=== PATIENT | female | born 1950 | race Caucasian/White ===

== ENCOUNTER → 2016-12-06 | Outpatient (CLI) | payer OTHER | LOC: FIMAGING 11:48 | PROVIDERS: ATTEND General Practice | DX: M26.69 Other specified disorders of temporomandibular joint (principal) ==

== ENCOUNTER → 2018-03-08 | Outpatient (CLI) | payer OTHER, MEDICARE | LOC: BHFA 14:30 | PROVIDERS: ATTEND Internal Medicine Interventional Cardiology | DX: I48.91 Unspecified atrial fibrillation (principal); I27.20 Pulmonary hypertension, unspecified; I07.1 Rheumatic tricuspid insufficiency ==

== ENCOUNTER → 2018-03-29 | Outpatient (CLI) | payer OTHER, MEDICARE | LOC: BHFA 15:30 | PROVIDERS: ATTEND Internal Medicine Cardiovascular Disease | DX: I27.20 Pulmonary hypertension, unspecified (principal) ==

== ENCOUNTER 2018-08-10 09:38 | Observation (INO) | payer OTHER, MEDICARE ==
--- NOTE | 2018-08-10 09:47 | EDPHY ---
H & P Stated Complaint: odd feeling in heart since yesterday--"wormy feeling" Time Seen by Provider: 08/10/18 09:46 - Personal History Tetanus Vaccine Date: within the last 10 yrs - Medical/Surgical History Hx Asthma: No Hx Chronic Respiratory Disease: No Hx Diabetes: No Hx Cardiac Disease: No Hx Renal Disease: No Hx Cirrhosis: No Hx Alcoholism: No Hx HIV/AIDS: No Hx Splenectomy or Spleen Trauma: No Other PMH: scloliosis,depressive disorder, goitre, TMJ/chronic pain, fatigue, leaku heart valve and cardiomyopathy - Social History Smoking Status: Former smoker Constitutional: Initial Vital Signs Temperature (C) 36.7 C 08/10/18 09:42 Heart Rate 141 H 08/10/18 09:42 Respiratory Rate 18 08/10/18 09:42 Blood Pressure 121/86 H 08/10/18 09:42 O2 Sat (%) 95 08/10/18 09:42 O2 Delivery Mode Room Air Allergies/Adverse Reactions: No Known Allergies Allergy (Verified 09/03/12 18:24) Home Medications: Medication Instructions Recorded ARIPiprazole [Abilify 10 mg (*)] 15 mg PO DAILY 12/29/14 FLUoxetine [Prozac 20 MG (*)] 20 mg PO DAILY 12/29/14 buPROPion SR [Wellbutrin 150mg SR 150 mg PO 1200 12/29/14 (*)] buPROPion SR [Wellbutrin 150mg SR 300 mg PO DAILY 12/29/14 (*)] Acetaminophen [Tylenol 325mg (*)] 325 - 650 mg PO Q6 PRN #60 tab 01/21/15 Aspirin EC [Aspirin EC 325 mg (*)] 325 mg PO DAILY #20 tab 01/21/15 Docusate Sodium [Colace 100 MG (*)] 100 mg PO BID #60 cap 01/21/15 celeCOXIB [Celebrex (*)] 200 mg PO DAILY #20 cap 01/21/15 oxyCODONE CR [Oxycontin] 15 mg PO BID #30 tab 01/21/15 oxyCODONE IR [Oxycodone Ir (*)] 5 mg PO Q4 PRN #60 tab 01/21/15 Medical Decision Making ED Course/Re-evaluation: CHIEF COMPLAINT: "Funny feeling in heart" HISTORY OF PRESENT ILLNESS: The patient is a 68 y/o female with a history of cardiomyopathy, leaky tricuspid valve, and chronic fatigue complaining of a "funny feeling in her heart" onset several days ago. On Sunday, 2 days ago, she had a dental procedure and was under propofol sedation for 10 hours with local anesthetization at the site of the procedure. She had an odd feeling in her heart prior to the procedure. Yesterday she had some palpitations. However, today she now has a "wormy" sensation in her heart. Since the surgery she has taken Doxycycline, 20mg Oxycodone Q4H, and 2mg Ativan (last night). She is followed by Dr. Chou, personal insurance advisor, and her most recent was in March 2018, 5 months ago. No headache, shortness of breath, abdominal pain, urinary or bowel complaints, numbness, paresthesias, fevers. REVIEW OF SYSTEMS: A comprehensive 10 system review of systems is otherwise negative aside from elements mentioned in the history of present illness and medical decision making. PHYSICAL EXAM: HR, BP, O2 Sat, RR. Temp noted General Appearance: Alert, well hydrated, appropriate, and non-toxic appearing. Head: Atraumatic without scalp tenderness or obvious injury Eyes: Pupils equal, round, reactive to light and accommodation, EOMI, no trauma , no injection. Ears: Clear bilaterally, no perforation, normal landmarks Nose: Atraumatic, no rhinorrhea, clear. Throat: There is no erythema or exudates, no lesions, normal tonsils, mucus membranes moist. Neck: Supple, 2+ carotid upstroke, nontender, no lymphadenopathy. Respiratory: No retractions, no distress, no wheezes, and no accessory muscle use. Lungs are clear to auscultation bilaterally. Cardiovascular: Tachycardia, no murmurs, rubs, or gallops. Bilateral carotid, radial, dorsalis pedis, and posterior tibial pulses intact. Good capillary refill all extremities. Gastrointestinal: Abdomen is soft, nontender, non-distended, no masses, no rebound, no guarding, no peritoneal signs. Musculoskeletal: Normal active ROM of all extremities, atraumatic. Neurological: Alert, appropriate, and interactive. The patient has normal DTRs and non-focal cranial nerves, motor, sensory, and cerebellar exam. Skin: No rashes, good turgor, no nodules on palpation. Past medical history: Scoliosis, depressive disorder, TMJ/chronic pain, fatigue , leaky tricuspid valve and cardiomyopathy Past surgical history: Denies Family history: Denies Social history: Friend at bedside, lives in [place], retired DIAGNOSTICS/PROCEDURES/CRITICAL CARE TIME: EKG: The 12 lead EKG was interpreted by myself as sinus tachycardia with a rate of 140. See hard copy and/or "tracemaster" electronic copy for interpretation. DIFFERENTIAL DIAGNOSIS: The differential diagnosis for the patient's narrow complex tachycardia included but was not limited to various causes of sinus tachycardia such as dehydration and medicines, SVT, atrial flutter, atrial fibrillation, pulmonary causes. MEDICAL DECISION MAKING: The patient is a 68 y/o female with a history of cardiomyopathy, leaky tricuspid valve, and chronic fatigue presenting with a "funny feeling in her heart" including a racing heart with palpitations, onset last night. On exam she has tachycardia of 141bpm. EKG and labs ordered. 0950: I interpreted patient's EKG as sinus tachycardia with a rate of 140. I discussed the risks and benefits of Adenosine; she is comfortable with having this medication. 0959: Reassessed patient; she is hemodynamically stable. 1003: 12mg IV Adenosine administered, she did not cardiovert but it did effect the rhythm. Her heart rate remains 138. She is most likely in atrial flutter based on the rate and EKG. I will consult with her personal insurance advisor. I have also discussed the probable admission and SIENA procedure; which she is comfortable with. Diltazem drip administered. 1013: I consulted with Dr. Rodrigues, personal insurance advisor, regarding this patient. He agrees with plan for admission and will follow this patient during her admission. 60mg SC Lovenox administered. 1018: I consulted with the hospitalist service, Dr. Esquivel agrees to admit this patient. 1025: Patient's rate has dropped down to the 110's; 10mg IV Diltiazem bolus administered instead of drip. 1040: Patient is safe to be transferred to the floor. - Data Points Laboratory Results: Laboratory Results 08/10/18 10:05 08/10/18 08/10/18 08/10/18 10:05 10:05 10:05 WBC 11.37 10^3/uL H 10^3/uL (3.80-9.50) RBC 4.43 10^6/uL 10^6/uL (4.18-5.33) Hgb 15.2 g/dL g/dL (12.6-16.3) Hct 45.6 % % (38.0-47.0) MCV 102.9 fL H fL (81.5-99.8) MCH 34.3 pg H pg (27.9-34.1) MCHC 33.3 g/dL g/dL (32.4-36.7) RDW 12.6 % % (11.5-15.2) Plt Count 285 10^3/uL 10^3/uL (150-400) MPV 10.6 fL fL (8.7-11.7) Neut % (Auto) 79.9 % H % (39.3-74.2) Lymph % (Auto) 13.2 % L % (15.0-45.0) [place] % (Auto) 6.0 % % (4.5-13.0) Eos % (Auto) 0.1 % L % (0.6-7.6) Baso % (Auto) 0.4 % % (0.3-1.7) Nucleat RBC Rel Count 0.0 % % (0.0-0.2) Absolute Neuts (auto) 9.10 10^3/uL H 10^3/uL (1.70-6.50) Absolute Lymphs (auto) 1.50 10^3/uL 10^3/uL (1.00-3.00) Absolute Monos (auto) 0.68 10^3/uL 10^3/uL (0.30-0.80) Absolute Eos (auto) 0.01 10^3/uL L 10^3/uL (0.03-0.40) Absolute Basos (auto) 0.04 10^3/uL 10^3/uL (0.02-0.10) Absolute Nucleated RBC 0.00 10^3/uL 10^3/uL (0-0.01) Immature Gran % 0.4 % % (0.0-1.1) Immature Gran # 0.04 10^3/uL 10^3/uL (0.00-0.10) PT 13.2 SEC SEC (12.0-15.0) INR 0.98 (0.83-1.16) APTT 25.2 SEC SEC (23.0-38.0) D-Dimer 1.12 ug/mLFEU H ug/mLFEU (0.00-0.50) Sodium Pending Potassium Pending Chloride Pending Carbon Dioxide Pending Anion Gap Pending BUN Pending Creatinine Pending Estimated GFR Pending Glucose Pending Calcium Pending Magnesium Pending POC Troponin I NT-Pro-B Natriuret Pep Pending 08/10/18 10:01 WBC RBC Hgb Hct MCV MCH MCHC RDW Plt Count MPV Neut % (Auto) Lymph % (Auto) [place] % (Auto) Eos % (Auto) Baso % (Auto) Nucleat RBC Rel Count Absolute Neuts (auto) Absolute Lymphs (auto) Absolute Monos (auto) Absolute Eos (auto) Absolute Basos (auto) Absolute Nucleated RBC Immature Gran % Immature Gran # PT INR APTT D-Dimer Sodium Potassium Chloride Carbon Dioxide Anion Gap BUN Creatinine Estimated GFR Glucose Calcium Magnesium POC Troponin I 0.03 ng/mL ng/mL (0.00-0.08) NT-Pro-B Natriuret Pep Medications Given: Discontinued Medications Adenosine (Adenosine) 12 mg IVP EDNOW ONE Stop: 08/10/18 09:57 Last Admin: 08/10/18 10:06 Dose: 12 mg Diltiazem HCl (Cardizem 25 Mg/5 Ml Vial) 20 mg IVP EDNOW ONE Stop: 08/10/18 10:10 Last Admin: 08/10/18 10:30 Dose: Not Given Point of Care Test Results: Chemistry 08/10/18 10:01 POC Troponin I 0.03 ng/mL ng/mL (0.00-0.08) Departure - Departure Disposition: [facility] Inpatient Acute Clinical Impression: Atrial flutter Qualifiers: Atrial flutter type: unspecified Qualified Code(s): I48.92 - Unspecified atrial flutter Condition: Fair Referrals: Chio Epps MD [Primary Care Provider] - As per Instructions Report Scribed for: Troy Brandon Report Scribed by: Crista Valverde Date of Report: 08/10/18 Time of Report: 09:47
[2018-08-10] MEDS ORDERED: ADENOSINE 6 MG/2 ML VIAL ONE (09:55)
[2018-08-10] MEDS ORDERED: ADENOSINE 6 MG/2 ML VIAL IVP ONE (09:56)
[2018-08-10] MEDS ORDERED: DILTIAZEM 125 MG in D5W 125 ML IV ONE (10:09)
[2018-08-10] MEDS ORDERED: DILTIAZEM 25 MG/5 ML VIAL IVP ONE (10:09)
[2018-08-10] MEDS ORDERED: ENOXAPARIN 60 MG/0.6 ML SYR SC ONE (10:17)
[2018-08-10 10:21] LABS: PLATELET COUNT 285 10^3/uL (150-400)
[2018-08-10] MEDS ORDERED: DILTIAZEM 25 MG/5 ML VIAL IVP SCH (10:30)
[2018-08-10 10:32] LABS: INR 0.98 (0.83-1.16); PROTIME(PATIENT) 13.2 SEC (12.0-15.0)
--- NOTE | 2018-08-10 13:59 | CPEKG ---
Test Reason : OPEN Blood Pressure : / mmHG Vent. Rate : 140 BPM Atrial Rate : 140 BPM P-R Int : 112 ms QRS Dur : 126 ms QT Int : 363 ms P-R-T Axes : 082 082 -67 degrees QTc Int : 554 ms Sinus tachycardia Right bundle branch block Nonspecific T abnormalities, lateral leads Confirmed by Troy Brandon ([id number]) on 08/10/2018 1:59:04 PM Referred By: Confirmed By:Troy Brandon
[2018-08-10] MEDS: ACETAMINOPHEN 325 MG TAB PO PRN ×2 (14:11→23:00)
[2018-08-10] MEDS ORDERED: oxyCODONE IR 5 MG TAB PO PRN (14:52)
[2018-08-10] MEDS ORDERED: LORazepam 1 MG TAB PO PRN (14:52)
[2018-08-10] MEDS ORDERED: methylPREDNISolone 4 MG TAB PO SCH (15:00)
[2018-08-10] MEDS: PILOCARPINE HCL 5 MG TAB PO SCH ×2 (15:55→22:57)
[2018-08-10] MEDS: AMOX/CLAVULANATE 500/125 MG TAB PO SCH (16:00)
--- NOTE | 2018-08-10 16:03 | PDGENHP ---
History and Physical - Chief Complaint palpitations - History of Present Illness The patient is a 68 y/o female with a history of cardiomyopathy, leaky tricuspid valve, and chronic fatigue complaining of a "funny feeling in her heart" onset several days ago. On Sunday, 2 days ago, she had a dental procedure and was under propofol sedation for 10 hours with local anesthetization at the site of the procedure. She had an odd feeling in her heart prior to the procedure. Yesterday she had some palpitations. However, today she now has a "wormy" sensation in her heart. Since the surgery she has taken Doxycycline, 20mg Oxycodone Q4H, and 2mg Ativan (last night). She is followed by Dr. Chou, pattern stamper Denies headache, shortness of breath, abdominal pain, urinary or bowel complaints, numbness, paresthesias, fevers. IN the ER she is noted to be in aflutter and was started on Lovenox. Initially she was supposed to have started a Diltiazem drip but this was changed to a bolus Past medical history: Scoliosis, depressive disorder, TMJ/chronic pain, fatigue , leaky tricuspid valve and cardiomyopathy Past surgical history: Denies Family history: Denies Social history: Friend at bedside, lives in [place], retired History Information - Allergies/Home Medication List Allergies/Adverse Reactions: No Known Allergies Allergy (Verified 09/03/12 18:24) Home Medications: ARIPiprazole [Abilify 5 mg (*)] 5 mg PO DAILY 08/10/18 [Last Taken 08/09/18] Amox Tr/K Clav (Augmentin) [Augmentin 500/125 MG TAB (*)] 500 mg PO Q8 08/10/18 [Last Taken 08/10/18 08:00] Bupropion HCl [Wellbutrin Xl] 300 mg PO DAILY 08/10/18 [Last Taken 08/09/18] Estradiol/Norethindrone Acet [Activella 0.5-0.1 mg Tablet] 1 each PO DAILY 08/10 [Last Taken 08/09/18] Herbals/Supplements -Info Only 1 ea PO DAILY 08/10/18 [Last Taken Unknown] LORazepam [Ativan 2 mg tab] 2 mg PO BID PRN 08/10/18 [Last Taken Unknown] Methylphenidate HCl [Ritalin 20mg (*)] 20 mg PO DAILY PRN 08/10/18 [Last Taken Unknown] Ondansetron [Zofran Odt] 8 mg PO Q2D 08/10/18 [Last Taken 08/09/18] Oxycodone Ir 10mg Tablet 10 mg PO BID PRN 08/10/18 [Last Taken Unknown] Oxycodone Ir 20mg Tablet 20 mg PO Q4HRS PRN 08/10/18 [Last Taken Unknown] Pilocarpine HCl [Salagen 5mg (*)] 5 mg PO TID 08/10/18 [Last Taken 08/09/18] Sildenafil Citrate [Revatio 20 MG (*)] 20 mg PO DAILY PRN 08/10/18 [Last Taken Unknown] Testosterone 2.5mg Cmpd Tab 2.5 mg PO DAILY 08/10/18 [Last Taken Unknown] Vortioxetine Hydrobromide [Brintellix] 20 mg PO Q2D 08/10/18 [Last Taken ] buPROPion XL [Wellbutrin Xl] 150 mg PO DAILY 08/10/18 [Last Taken 08/09/18] methylPREDNISolone [Medrol 4mg (*)] 4 mg PO AD 08/10/18 [Last Taken 08/10/18 16mg] I have personally reviewed and updated: medical history, social history - Social History Smoking Status: Former smoker Review of Systems Review of Systems: ROS: 10pt was reviewed & negative except for what was stated in HPI & below Physical Exam Physical Exam: Temp Pulse Resp BP Pulse Ox 37.1 C 78 20 92/50 L 92 08/10/18 15:23 08/10/18 15:23 08/10/18 15:23 08/10/18 15:23 08/10/18 15:23 Constitutional: no apparent distress Eyes: PERRL, EOMI Ears, Nose, Mouth, Throat: moist mucous membranes, No poor dentition Cardiovascular: No JVD, No edema Respiratory: no respiratory distress Gastrointestinal: No guarding, No distension Skin: warm, other (bruising around mouth) Musculoskeletal: full muscle strength Neurologic: AAOx3 Psychiatric: interacting appropriately, not anxious, not encephalopathic Lymph, Heme, Immunologic: No petechiae Lab Data & Imaging Review 08/10/18 10:05 08/10/18 10:05 WBC 11.37 10^3/uL (3.80-9.50) H 08/10/18 10:05 RBC 4.43 10^6/uL (4.18-5.33) 08/10/18 10:05 Hgb 15.2 g/dL (12.6-16.3) 08/10/18 10:05 Hct 45.6 % (38.0-47.0) 08/10/18 10:05 MCV 102.9 fL (81.5-99.8) H 08/10/18 10:05 MCH 34.3 pg (27.9-34.1) H 08/10/18 10:05 MCHC 33.3 g/dL (32.4-36.7) 08/10/18 10:05 RDW 12.6 % (11.5-15.2) 08/10/18 10:05 Plt Count 285 10^3/uL (150-400) 08/10/18 10:05 MPV 10.6 fL (8.7-11.7) 08/10/18 10:05 Neut % (Auto) 79.9 % (39.3-74.2) H 08/10/18 10:05 Lymph % (Auto) 13.2 % (15.0-45.0) L 08/10/18 10:05 [place] % (Auto) 6.0 % (4.5-13.0) 08/10/18 10:05 Eos % (Auto) 0.1 % (0.6-7.6) L 08/10/18 10:05 Baso % (Auto) 0.4 % (0.3-1.7) 08/10/18 10:05 Nucleat RBC Rel Count 0.0 % (0.0-0.2) 08/10/18 10:05 Absolute Neuts (auto) 9.10 10^3/uL (1.70-6.50) H 08/10/18 10:05 Absolute Lymphs (auto) 1.50 10^3/uL (1.00-3.00) 08/10/18 10:05 Absolute Monos (auto) 0.68 10^3/uL (0.30-0.80) 08/10/18 10:05 Absolute Eos (auto) 0.01 10^3/uL (0.03-0.40) L 08/10/18 10:05 Absolute Basos (auto) 0.04 10^3/uL (0.02-0.10) 08/10/18 10:05 Absolute Nucleated RBC 0.00 10^3/uL (0-0.01) 08/10/18 10:05 Immature Gran % 0.4 % (0.0-1.1) 08/10/18 10:05 Immature Gran # 0.04 10^3/uL (0.00-0.10) 08/10/18 10:05 PT 13.2 SEC (12.0-15.0) 08/10/18 10:05 INR 0.98 (0.83-1.16) 08/10/18 10:05 APTT 25.2 SEC (23.0-38.0) 08/10/18 10:05 D-Dimer 1.12 ug/mLFEU (0.00-0.50) H 08/10/18 10:05 Sodium 138 mEq/L (135-145) 08/10/18 10:05 Potassium 4.2 mEq/L (3.3-5.0) 08/10/18 10:05 Chloride 101 mEq/L (97-110) 08/10/18 10:05 Carbon Dioxide 25 mEq/l (22-31) 08/10/18 10:05 Anion Gap 12 mEq/L (6-14) 08/10/18 10:05 BUN 18 mg/dL (7-23) 08/10/18 10:05 Creatinine 1.1 mg/dL (0.6-1.0) H 08/10/18 10:05 Estimated GFR 50 08/10/18 10:05 Glucose 105 mg/dL (70-100) H 08/10/18 10:05 Calcium 9.8 mg/dL (8.5-10.4) 08/10/18 10:05 Magnesium 2.1 mg/dL (1.6-2.3) 08/10/18 10:05 POC Troponin I 0.03 ng/mL (0.00-0.08) 08/10/18 10:01 NT-Pro-B Natriuret Pep 5440 pg/mL (0-125) H 08/10/18 10:05 TSH 3.310 uIU/mL (0.465-4.680) 08/10/18 10:05 Free T4 1.63 ng/dL (0.59-2.19) 08/10/18 10:05 Assessment & Plan Assessment: #Atrial flutter -EKG c/w 2:1 block -did not start a Diltiazem drip. Instead was given Diltiazem 10mg IV x 1. BP has now dropped and HR is controlled. As she did not tolerate the CCB, will start Metoprolol BID -NPO in case cardioversion is needed in the a.m. -[facility] for clot prevention -Telemetry #S/p Dental Procedures: will provide pain control. #Acute pain: pain meds per above D/W Dr. Rodrigues
[2018-08-10] MEDS ORDERED: AMOX/CLAVULANATE 500/125 MG TAB PO SCH (22:00)
[2018-08-10] MEDS: METOPROLOL TARTRATE 25 MG TAB PO SCH (22:11)
[2018-08-10] MEDS: ENOXAPARIN 80 MG/0.8 ML SYR SC SCH (22:11)
[2018-08-10] MEDS: oxyCODONE IR 5 MG TAB PO PRN (22:57)
--- NOTE | 2018-08-11 00:32 | GCON ---
CARDIOLOGY CONSULTATION. DATE OF CONSULTATION: 08/10/2018 INDICATION FOR CONSULTATION: New onset of atrial flutter. HISTORY OF PRESENT ILLNESS: The patient is a pleasant 68-year-old female with a known history of iso lated episode of paroxysmal atrial fibrillation in the setting of supplemental T4, severe tricuspid r egurgitation with pulmonary pressure of 48 mmHg on echocardiogram from March 2018, depression who over the course of this week has undergone significant oral surgery with removal of all of her teeth seco ndary to deterioration of her teeth from grinding. She states she underwent a prolonged 2 day oral s urgery with removal of all of her teeth requiring approximately 10 hours of general anesthesia with p ropofol. Yesterday, she returned to the dentist for temporary implant of her teeth. She states that this was a very prolonged and stressful procedure. She states that on her way home from the dentist 's office that she began to notice a fluttering in her chest which she described as like "having worm s in my heart." She denied any associated dizziness, lightheadedness, near syncope, or syncope. These symptoms of irregular heartbeat persisted. She contacted the on-call shoe shiner last evening . She spoke with CHARITO Toussaint, who recommended that she present to [facility] for further evaluation. Upon arrival in the emergency department, she was found to be in atrial flutter with 2:1 block at 140 beats per minute. She was given adenosine by Dr. Brandon, which did not resolve the rhythm, but briseida ar flutter waves were noted. She was started on diltiazem drip. She is currently on 10 mg/hour with a marked improvement now with flutter with variable block with rates primarily in the 80s. Currently, at the time of my exam, she is resting comfortably. She continues to have a sensation of irregular heartbeat. She denies any complaints of chest pain, chest pressure, shortness of breath, o r dyspnea. No complaints of PND, orthopnea, or lower extremity edema. No complaints of fevers, chil ls, sweats, nausea, vomiting, or diaphoresis. No complaints of abdominal pain or flank pain. PAST MEDICAL HISTORY: As outlined above. PAST SURGICAL HISTORY: Hip replacement surgery and recent complete dental extraction. ALLERGIES: To medications, none. MEDICATIONS: On admission, oxycodone IR 20 mg Q.4 hours p.r.n. pain, methylprednisone 4 mg once brent y, Augmentin 500 mg p.o. q.8 hours, sildenafil 20 mg daily p.r.n., oxycodone IR 10 mg p.o. b.i.d. p.r .n., Ativan 2 mg p.o. b.i.d. p.r.n., Pilocarpine 5 mg p.o. t.i.d., estradiol/norethindrone 0.5-0.1 mg daily. Testosterone 2.5 mg daily, Zofran 8 mg p.o. q.2 days. Abilify 5 mg p.o. daily. Ritalin 20 mg p.o. daily p.r.n., Wellbutrin 300 mg p.o. daily. Wellbutrin 150 mg p.o. daily, Brintellix 20 mg q .2 days. SOCIAL HISTORY: She rarely drinks alcohol. She does drink coffee. She is . She does have a boyfriend. She exercises occasionally. FAMILY HISTORY: No significant family history. PHYSICAL EXAMINATION: VITAL SIGNS: Blood pressure 108/66, heart rate 88 in atrial flutter with vari able block. Oxygen saturation 91% on room air, temperature is 37.1. GENERAL: She is awake, alert, oriented, appropriate, in no apparent distress. NECK: There is no evidence of JVP or carotid bruits . LUNGS: Clear to auscultation bilaterally. CARDIAC: Exam is S1, S2. Irregular. No murmurs, rub s, or gallops. ABDOMEN: Soft, nontender, nondistended. There is no pulsatile mass or abdominal bru it. EXTREMITIES: No evidence of cyanosis, clubbing, or edema. LAB RESULTS: Telemetry demonstrates atrial flutter with variable block with rate in the mid 80s. EC G demonstrated atrial flutter with 2:1 block at 140 beats per minute. White blood cell count 11.3, hemoglobin of 15.2, hematocrit of 45.6, platelets 285. Sodium 138, pota ssium 4.2, chloride 101, bicarb 25, BUN 18, creatinine 1.1, magnesium 2.1. Troponin 0.03. N-termina l proBNP 5,440. No previous value for comparison. Echocardiogram from March 29, 2018, performed at [facility] demonstrates normal left ventric ular size and function with LVEF of 66%. Left atrium is borderline dilated. Right atrium is moderat susana dilated. She does have moderate to severe tricuspid regurgitation with RV systolic pressure 48 m mHg. IMPRESSION: 1. New onset atrial flutter with 2:1 block on admission. 2. History of isolated episode of atrial fibrillation requiring cardioversion after supplemental T4 therapy to treat underlying depression. 3. Moderate to severe tricuspid regurgitation with RV systolic pressure of 48 mmHg on echocardiogram from March 2018. In summary, the patient is a pleasant 68-year-old female with atrial flutter with 2:1 block, which I think is most likely triggered by the stressful events this week with her oral surgery, dental extrac tion and new temporary implants. She is responding well to IV diltiazem. Her CHADS-Vasc score is 2 based off age and gender. She did receive full-dose Lovenox of 1 mg/per/kg in the emergency departme nt earlier today. Would recommend she continue on current diltiazem drip and scheduled Lovenox 1 mg/ per/kg q.12 hours. Would recommend she remain n.p.o. after midnight for consideration of SIENA guided cardioversion tomorrow morning if the atrial flutter persists. PLAN: 1. Continue diltiazem drip at 10 mg/hour. 2. Continue Lovenox 1 mg/per/kg q.12 hours. 3. N.p.o. after midnight. 4. Lab work. Check TSH and free T4. 5. Recommend SIENA guided cardioversion for tomorrow if atrial flutter persists. /[id number]/MODL
[2018-08-11 05:19] LABS: PLATELET COUNT 261 10^3/uL (150-400)
[2018-08-11] MEDS: AMOX/CLAVULANATE 500/125 MG TAB PO SCH (05:30)
[2018-08-11] MEDS ORDERED: OXYCODONE 20 MG PO PRN (05:33)
[2018-08-11] MEDS: oxyCODONE IR 5 MG TAB PO PRN (05:46)
[2018-08-11] MEDS ORDERED: buPROPion XL 150 MG TAB PO SCH ×2 (09:00)
[2018-08-11] MEDS ORDERED: ARIPiprazole 5 MG TAB PO SCH (09:00)
[2018-08-11] MEDS: METOPROLOL TARTRATE 25 MG TAB PO SCH (09:30)
[2018-08-11] MEDS: PILOCARPINE HCL 5 MG TAB PO SCH (09:30)
[2018-08-11] MEDS ORDERED: methylPREDNISolone 4 MG TAB PO ONE ×2 (09:30)
[2018-08-11] MEDS: ENOXAPARIN 80 MG/0.8 ML SYR SC SCH (09:33)
[2018-08-11] MEDS: ACETAMINOPHEN 325 MG TAB PO PRN (11:03)
--- NOTE | 2018-08-11 11:34 | PDCARPN ---
Cardiology Progress Note Assessment/Plan: The patient is a 68-year-old female followed by Dr. Chou for a history of moderate to severe tricuspid regurgitation and one prior episode of documented atrial fibrillation requiring cardioversion several years ago. She recently underwent 2 days of extensive dental work for dental implants. She began to notice palpitations 1 or 2 days after her procedures. On Sunday night, she contacted our on-call JONO. She was advised to seek evaluation in the emergency room. She presented yesterday morning and her ECG demonstrated atrial flutter with 2:1 AV conduction. She was hemodynamically stable and did not experience any symptoms of chest discomfort, significant shortness of breath, or lightheadedness. She initially received a bolus dose of diltiazem which reduced her heart but rate also produced hypotension. Therefore, she was placed on metoprolol 25 mg twice daily. Over night, her heart rate has been generally controlled but she continues to have persistent atrial flutter. Her troponin was negative. Her BNP is moderately elevated at 5440 but she does not have any physical evidence of volume overload. - Will plan for SIENA/cardioversion today. - Currently on low molecular weight heparin. Will discharge her on Eliquis 5 mg twice daily for 4 weeks. Decisions regarding ongoing beta-giovanna, calcium channel giovanna, antiarrhythmic therapy, and chronic anticoagulation will be deferred pending her clinical course over the next few weeks. - Will notify [facility] staff to contact her for followup appointment. 08/11/18 11:54 Subjective: Notes a "wormy" feeling in her chest. Objective: Vital Signs (8 Hrs) Temp Pulse Resp BP Pulse Ox 08/11/18 08:00 36.7 C 99 19 105/78 99 Intake/Output (24 Hrs) 08/10/18 08/11/18 08/12/18 05:59 05:59 05:59 Intake Total 935 Output Total 300 Balance 635 Intake: Oral (ml) 900 IV Infused (ml) 35 Diltiazem 125 mg In D5w 35 125 ml @ As Directed IV EDNOW ONE Rx#:[id number] Output: Urine (ml) 300 Toilet 300 Other: Weight 67.3 kg Intake Quantity Yes Sufficient Number of Voids Toilet 2 Number of Stools Toilet 1 Result Diagrams: 08/11/18 03:56 08/11/18 03:56 - Physical Exam Constitutional: WDWN, healthy appearing, no apparent distress Eyes: anicteric sclera Ears, Nose, Mouth, Throat: moist mucous membranes Cardiovascular: regular rate and rhythm, no murmurs, no gallops Respiratory: clear to auscultate bilat Gastrointestinal: normoactive bowel sounds, no tenderness, no masses Skin: no edema Neurologic: AAOx3 Psychiatric: not anxious ICD10 Worksheet Patient Problems: Problems Problem Status Onset Atrial flutter Acute Hip pain Acute Osteoarthritis of hip Acute
[2018-08-11 11:37] VITALS: BP 110/64
--- NOTE | 2018-08-11 11:39 | HOSPPROG ---
Hospitalist Progress Note Assessment/Plan: #Atrial flutter, persistent -EKG c/w 2:1 block -In the ER she did not start a Diltiazem drip. Instead she was given Diltiazem 10mg IV x 1 and this dropped her BP substantially. Therefore she was switched over to Metoprol which she has tolerated well. -She remains in Aflutter and Cards will see today with the likely plan to perform cardioversion -remains on Lovenox for AC -Telemetry #S/p Dental Procedures: will provide pain control. #Acute pain: pain meds per above Dispo: pending Cards evaluation and plan. Subjective: still in afib. no cp or sob. no edema Objective: Vital Signs Temp Pulse Resp BP Pulse Ox 37.0 C 91 19 110/64 92 08/11/18 11:35 08/11/18 11:35 08/11/18 11:35 08/11/18 11:35 08/11/18 11:35 Laboratory Results 08/11/18 03:56 08/11/18 03:56 08/10/18 08/11/18 08/12/18 05:59 05:59 05:59 Intake Total 935 Output Total 300 Balance 635 PT 13.2 SEC (12.0-15.0) 08/10/18 10:05 INR 0.98 (0.83-1.16) 08/10/18 10:05 - Physical Exam Constitutional: no apparent distress Eyes: PERRL, EOMI Ears, Nose, Mouth, Throat: moist mucous membranes, hearing normal, ears appear normal Cardiovascular: regular rate and rhythym Respiratory: no respiratory distress, no rales or rhonchi, clear to auscultation Gastrointestinal: normoactive bowel sounds, soft, non-tender abdomen Skin: warm Neurologic: AAOx3 Psychiatric: interacting appropriately, not anxious, not encephalopathic Lymph, Heme, Immunologic: No petechiae ICD10 Worksheet Patient Problems: Problems Problem Status Onset Atrial flutter Acute Hip pain Acute Osteoarthritis of hip Acute
[2018-08-11] MEDS ORDERED: NS 1,000 ML IV ONE (11:45)
--- NOTE | 2018-08-11 11:56 | PDHPUP ---
History & Physical Update H&P update statement: This history and physical update is based on an assessment of the patient which was completed after admission or registration (within 24 hours), but prior to the surgery/procedure. H&P update: H&P reviewed & patient examined, no change in patient's condition since H&P completed
[2018-08-11] MEDS ORDERED: PROPOFOL/EMULSION 500 MG/50 ML BOTTLE IV ONE ×2 (12:22)
--- NOTE | 2018-08-11 12:30 | PDANEPAE ---
ANE History of Present Illness A-fib/flutter here for SIENA CV ANE Past Medical History - Cardiovascular History Hx Hypertension: No Hx Arrhythmias: Yes Hx Chest Pain: No Hx Coronary Artery / Peripheral Vascular Disease: No Hx CHF / Valvular Disease: No Hx Palpitations: No Cardiovascular History Comment: "LEAKY" RIGHT VALVE. HX OF AFIB RESOLVED NOW. BP RUNS LOW - Pulmonary History Hx COPD: No Hx Asthma/Reactive Airway Disease: No Hx Recent Upper Respiratory Infection: No Hx Oxygen in Use at Home: No Hx Sleep Apnea: No Sleep Apnea Screening Result - Last Documented: Negative - Neurologic History Hx Cerebrovascular Accident: No Hx Seizures: No Hx Dementia: No - Endocrine History Hx Diabetes: No Endocrine History Comment: MULTINODULAR GOITER - Renal History Hx Renal Disorders: No - Liver History Hx Hepatic Disorders: No - Neurological & Psychiatric Hx Hx Neurological and Psychiatric Disorders: Yes Neurological / Psychiatric History Comment: DEPRESSION- SEVERE. FATIQUE - Cancer History Hx Cancer: No - Congenital Disorder History Hx Congenital Disorders: No - GI History Hx Gastrointestinal Disorders: No - Other Health History Other Health History: TMJ. CHRONIC PAIN. BRUISES EASILY. OSTEOARTHRITIS - Chronic Pain History Chronic Pain: Yes (BOTH JAWS HAVE CHRONIC PAIN) - Surgical History Prior Surgeries: LT HIP LABRAL REPAIR 05/2014. HIP RESURFACING ON RIGHT HIP 2004 ANE Review of Systems Review of Systems: ANE Patient History - Allergies Allergies/Adverse Reactions: No Known Allergies Allergy (Verified 09/03/12 18:24) - Home Medications Home Medications: ARIPiprazole [Abilify 5 mg (*)] 5 mg PO DAILY 08/10/18 [Last Taken 08/09/18] Amox Tr/K Clav (Augmentin) [Augmentin 500/125 MG TAB (*)] 500 mg PO Q8 08/10/18 [Last Taken 08/10/18 08:00] Bupropion HCl [Wellbutrin Xl] 300 mg PO DAILY 08/10/18 [Last Taken 08/09/18] Estradiol/Norethindrone Acet [Activella 0.5-0.1 mg Tablet] 1 each PO DAILY 08/10 [Last Taken 08/09/18] Herbals/Supplements -Info Only 1 ea PO DAILY 08/10/18 [Last Taken Unknown] LORazepam [Ativan 2 mg tab] 2 mg PO BID PRN 08/10/18 [Last Taken Unknown] Methylphenidate HCl [Ritalin 20mg (*)] 20 mg PO DAILY PRN 08/10/18 [Last Taken Unknown] Ondansetron [Zofran Odt] 8 mg PO Q2D 08/10/18 [Last Taken 08/09/18] Oxycodone Ir 10mg Tablet 10 mg PO BID PRN 08/10/18 [Last Taken Unknown] Oxycodone Ir 20mg Tablet 20 mg PO Q4HRS PRN 08/10/18 [Last Taken Unknown] Pilocarpine HCl [Salagen 5mg (*)] 5 mg PO TID 08/10/18 [Last Taken 08/09/18] Sildenafil Citrate [Revatio 20 MG (*)] 20 mg PO DAILY PRN 08/10/18 [Last Taken Unknown] Testosterone 2.5mg Cmpd Tab 2.5 mg PO DAILY 08/10/18 [Last Taken Unknown] Vortioxetine Hydrobromide [Brintellix] 20 mg PO Q2D 08/10/18 [Last Taken ] buPROPion XL [Wellbutrin Xl] 150 mg PO DAILY 08/10/18 [Last Taken 08/09/18] methylPREDNISolone [Medrol 4mg (*)] 4 mg PO AD 08/10/18 [Last Taken 08/10/18 16mg] - NPO status NPO Status: no food or drink >8 hours NPO Since - Liquids (Date): 08/11/18 NPO Since - Liquids (Time): 05:45 NPO Since - Solids (Date): 08/11/18 NPO Since - Solids (Time): 00:00 - Anes Hx Anes Hx: no prior problems - Smoking Hx Smoking Status: Former smoker - Alcohol Use Alcohol Use: None - Family Anes Hx Family Anes Hx: none Family Hx Anesthesia Complications: NONE ANE Labs/Vital Signs - Labs Result Diagrams: 08/11/18 03:56 08/11/18 03:56 - Vital Signs Vital Signs: reviewed preoperatively; see RN documention for details Blood Pressure: 110/64 Heart Rate: 91 Respiratory Rate: 19 O2 Sat (%): 92 Height: 172.72 cm Weight: 67.3 kg ANE Physical Exam - Airway Neck exam: decreased ROM Mallampati Score: Class 3 Mouth exam: small mouth opening - Pulmonary Pulmonary: no respiratory distress - Cardiovascular Cardiovascular: irregularly irregular - ASA Status ASA Status: III ANE Anesthesia Plan Anesthesia Plan: GA with mask Total IV Anesthesia: Yes
--- NOTE | 2018-08-11 13:03 | PDTEE1 ---
SIENA Cardioversion Procedure Procedure: electrical cardioversion, transesophageal echo Indications: atrial fibrillation Consent: signed and in chart Anticoagulation: lovenox Procedural Details: Pads were placed in anterior-posterior position. SIENA probe was advanced and standard images obtained. There is no evidence of left atrial or left atrial appendage thrombus. Synchronized cardioversion attempt #1: 100J Results: normal sinus rhythm Conclusions: successful cardioversion Patient Problems: Problems Problem Status Onset Atrial flutter Acute Hip pain Acute Osteoarthritis of hip Acute
[2018-08-11] MEDS ORDERED: APIXABAN 5 MG TAB PO SCH (13:15)
--- NOTE | 2018-08-11 13:48 | ECHO ---
[email or web address] [address] [address] Main: [phone] Fax: Transesophageal Echocardiography Name: MELINDA SMALL MR#: [id number] Study Date: 08/11/2018 Study Time: 12:28 PM Date of : 1950 Age: 68 year(s) Height: ( ) Weight: ( ) BSA: Gender: Female Examination: SIENA Indication: Atrial Flutter Image Quality: Contrast: Requested by: Sudeep Lilly Heart Rate: Rhythm: BP: / Procedure Staff Case Therapist: Marbella Melgar [facility] Reading Physician: Sudeep Lilly MD Requesting Provider: SIENA Exam Details Conclusions: Normal size left ventricle. Normal global systolic LV function. No regional wall motion abnormality. The left atrium is normal in size. An agitated saline study was performed and was negative for intracardiac shunting. No thrombus in left appendage. Trivial mitral valve regurgitation. Trivial aortic valve regurgitation. Moderate tricuspid regurgitation is present. SIENA followed by successful cardioversion. Measurements: Chambers Valvular Assessment AV/MV Valvular Assessment TV/PV Normal Normal Normal Name Value Range Name Value Range Name Value Range Additional Measurements: Findings: Left Ventricle: Normal size left ventricle. Normal global systolic LV function. No regional wall motion abnormality. Left Atrium: The left atrium is normal in size. An agitated saline study was performed and was negative for Patient: MELINDA SMALL Study Date: 08/11/2018 Page 1 of 2 12:28 PM intracardiac shunting. Left Atrial Appendage: No thrombus in left appendage. Right Atrium: The right atrium is normal in size. Mitral Valve: The mitral valve is normal in appearance. Trivial mitral valve regurgitation. Aortic Valve: The aortic valve is tri-leaflet. Trivial aortic valve regurgitation. Tricuspid Valve: Moderate tricuspid regurgitation is present. l1n (No Signature Object) Patient: MELINDA SMALL Study Date: 08/11/2018 Page 2 of 2 12:28 PM [id number]
--- NOTE | 2018-08-11 13:57 | GDS ---
REASON FOR ADMISSION: Persistent atrial flutter. HOSPITAL COURSE: Please refer to the hospitalist admission history and physical and my progress note. Briefly, the patient is a 68-year-old woman with a history of a single prior episode of atrial fibrillation, which required cardioversion several weeks ago. She is followed at [facility] by Dr. Nam Chou for moderate to severe tricuspid regurgitation and mild pulmonary hypertension. Earlier this week, she underwent 2 days of extensive oral surgery for multiple tooth extractions and placement of dental implants. This was a very uncomfortable and stressful procedure. A day or 2 after her procedures, she began to notice an irregular heart rhythm. She described a "wormy" feeling in her chest. She contacted our office and was instructed to go to the emergency room. There, her ECG demonstrated atrial flutter with a rapid ventricular response. She received a bolus dose of intravenous diltiazem , which slowed her heart rate but also produced hypotension. Therefore, a continuous diltiazem drip was deferred, and she was started on metoprolol 25 mg twice daily. She was also started on subcutaneous low molecular weight heparin for systemic anticoagulation. Overnight, her heart rate was marginally controlled, but she was in atrial flutter. She did not experience any symptoms of chest pain, lightheadedness/near syncope, or significant shortness of breath. This afternoon, she underwent a SIENA guided cardioversion. The SIENA demonstrated no evidence of left atrial thrombus. A single 100 joule shock was successful in restoring normal sinus rhythm. RECOMMENDATIONS AND DISPOSITION: On discharge: The patient is discharged in stable condition. Please refer to the medication reconciliation section of the electronic record. The only change to her outpatient medical therapy is the addition of metoprolol 25 mg twice daily, and Eliquis 5 mg twice daily. The office staff at [facility] has been instructed to contact the patient to arrange a followup appointment in the next 2-4 weeks. DISCHARGE DIAGNOSES: Persistent atrial flutter. /[id number]/MODL MTDD
--- NOTE | 2018-08-11 14:22 | ASMTDCNOTE ---
Case Management Discharge Discharge Order Complete? Answers: Yes Patient to Obtain Answers: via Family Medications Transportation Arranged Answers: Family/Friends Family Notified Answers: Yes Discharge Comments Notes: Patient is a 68 year old female admitted under observation for persistent atrial flutter. Patient is connected to [facility]. Patient underwent a SIENA guided cardioversion. CM met with patient, IM and BUTLER delivered and signed for receipt. Discharge to home independently, patient states family will support and she will follow up as recommended. CM available to support if any further needs arise. Date Signed: 08/11/2018 02:21 PM Electronically Signed By:Holly Antonio
[2018-08-11] MEDS ORDERED: METOPROLOL TARTRATE 25 MG TAB PO SCH (21:00)
[2018-08-12] MEDS ORDERED: ONDANSETRON 8 MG PO SCH (09:00)
[2018-08-12] MEDS ORDERED: Vortioxetine Hydrobromide [Trintellix] 20 MG PO SCH (09:00)
[2018-08-12] MEDS ORDERED: methylPREDNISolone 4 MG TAB PO ONE (09:00)
[2018-08-13] MEDS ORDERED: methylPREDNISolone 4 MG TAB PO ONE (09:00)
== END 2018-08-11 16:09 | disposition home or self-care (01) ==
LOC: F2W 11:20
PROVIDERS: ADMIT Family Medicine; ATTEND Internal Medicine Interventional Cardiology
PROC: 5A2204Z Restoration of Cardiac Rhythm, Single (ICD-10-PCS; principal; 2018-08-11)
PROC: B245ZZ4 Ultrasonography of Left Heart, Transesophageal (ICD-10-PCS; principal; 2018-08-11)
DX: I48.92 Unspecified atrial flutter (principal); I36.1 Nonrheumatic tricuspid (valve) insufficiency; I27.20 Pulmonary hypertension, unspecified; R53.82 Chronic fatigue, unspecified; I42.9 Cardiomyopathy, unspecified; M41.9 Scoliosis, unspecified; Z87.891 Personal history of nicotine dependence; Z98.818 Other dental procedure status
CPT/HCPCS: 93005; 93312; 96365; 96366; 96372; 96375; 99285; G0378; J0153; J1650; J2704; 84484-PO